=== PATIENT | male | born 1995 | race Caucasian/White ===

== ENCOUNTER → 2019-01-22 | Outpatient (CLI) | payer MEDICAID | LOC: M OUTALCOH 08:03 | PROVIDERS: ATTEND Psychiatry & Neurology Psychiatry | DX: Z03.89 Encounter for observation for other suspected diseases and conditions ruled out (principal) ==

== ENCOUNTER 2019-01-28 10:54 | Outpatient (RCR) | payer MEDICAID | END 2019-02-07 | LOC: M OUTALCOH 10:54 | PROVIDERS: ATTEND Psychiatry & Neurology Psychiatry | DX: Z03.89 Encounter for observation for other suspected diseases and conditions ruled out (principal) ==

== ENCOUNTER 2019-08-24 13:29 | Emergency (ER) | payer MEDICAID ==
[~2019-08-24] VITALS: Ht 188 cm; Wt 105.8 kg
[2019-08-24 14:18] VITALS: BP 138/74
--- NOTE | 2019-08-26 11:05 | REP ---
SHOULDER: REASON: Pain after lifting injury. PRIORS: None. Preliminary report given by Dr. Pinzon at the time the examination was performed. FINDINGS: Three views of the shoulder were performed. The acromioclavicular and glenohumeral relationships are within normal limits. There is no acute fracture or destructive osseous lesion. Electronically Signed by Gonzalez Sanchez DO 08/26/2019 11:54 A
== END 2019-08-24 14:20 | disposition home or self-care (01) ==
LOC: M ED 13:29
DX: M25.511 Pain in right shoulder (principal)

== ENCOUNTER 2020-05-28 15:09 | Emergency (ER) | payer OTHER ==
[~2020-05-28] VITALS: Ht 188 cm; Wt 111.4 kg
[2020-05-28 15:10] VITALS: BP 160/95
--- OUTSIDE RECORDS SUMMARY | 2020-05-28 15:20 | CCD | Continuity of Care Document ---
Author Author Ayden ABEBE PA Organization Unknown Address [address] [place] [id number] Phone [phone] Care Team Providers Care Western Philosophy Professor Name Role Phone aMrie Medina DO AUTM Problems Description No Information Available Social History Type Date Description Comments Sex Unknown Tobacco Use Start: Unknown End: Unknown Patient is a former smoker Smoking Status Reviewed: 10/21/19 Patient is a former smoker Allergies, Adverse Reactions, Alerts Description No Known Drug Allergies Medications Active Medications SIG Qnty Indications Ordering Provide r Date Meloxicam 15mg Tablets 1 by mouth every day with food or milk 30tabs M47.817 Rudi Field MD History Medications No Active Medications Unknown - 02/24/2020 Immunizations Description No Information Available Vital Signs Date Vital Result Comment 02/24/2020 5:32pm Body Temperature 97.4 F 12/09/2019 3:26pm Height 74 inches 6'2" Weight 229.00 lb BMI (Body Mass Index) 29.4 kg/m2 Results Description No Information Available Procedures Date Code Description Status 02/07/2020 Inject/Drain Joint/Bursa Major C ompleted 12/09/2019 99943 X-Ray Spine Lumbosacral Complete Inc Bending Views Min Of 6 Completed 10/21/2019 86164 X-Ray Shoulder Complete Complete d 10/21/201914627 Inject/Drain Joint/Bursa Interme diate Completed Medical Devices Description No Information Available Encounters Type Date Location Provider Dx Diagnosis Office Visit 02/24/2020 5:00p [place] MANOJ Benitez M47.817 Spondyls w/o myelopathy or radiculopathy, lumbosacr region M51.37 Other intervertebral disc de generation, lumbosacral region M51.27 Other intervertebral disc di splacement, lumbosacral region M48.07 Spinal stenosis, lumbosacral region M75.41 Impingement syndrome of righ t shoulder Office Visit 02/07/2020 12:[place]p [place] [facility] M51.36 Other intervertebral disc degeneration, lumbar region M75.41 Impingement syndrome of righ t shoulder M19.011 Primary osteoarthritis, righ t shoulder Office Visit 12/09/2019 2:30p [place] [facility] M51.36 Other intervertebral disc degeneration, lumbar region Office Visit 10/21/2019 3:15p [place] Rudi Field MD M19. 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 02/07/2020 M75.41 Impingement syndrome of right sh [place]ul[place] Michele Del Cid, P.A. 02/07/2020 M19.011 Primary osteoarthritis, right sh oulder Michele Del Cid, P.A. 12/09/2019 M51.36 Other intervertebral disc degene ration, lumbar region Michele Del Cid, P.A. 10/21/2019 M19.011 Primary osteoarthritis, right sh [place] Rudi Field MD Plan of Treatment Future Appointment(s):* 04/06/2020 5:15 pm - MANOJ Benitez at [place] 02/24/2020 - MANOJ Benitez* M47.817 Spondylosis without myelopathy or radiculopathy, lumbosacral region* New Medication:* Meloxicam 15 mg - 1 by mouth every day with food or milk * Follow up:* 6 weeks lumbar boris with [facility] * M51.37 Other intervertebral disc degeneration, lumbosacral region * M51.27 Other intervertebral disc displacement, lumbosacral region * M48.07 Spinal stenosis, lumbosacral region * M75.41 Impingement syndrome of right shoulder Functional Status Description No Information Available Mental Status Description No Information Available Referrals Description No Information Available
--- OUTSIDE RECORDS SUMMARY | 2020-05-28 15:20 | CCD ---
Continuity of Care Document (CCD) Created on: 04/15/2020 Ayden Pulido External Reference #: [id number] : [id number] Sex: Male Author Author Ayden ABEBE PA Organization Unknown Address [address] [place] [id number] Phone [phone] Care Team Providers Care Salesperson [employer] Name Role Phone Marie Medina DO AUTM [phone] Problems Description No Information Available Social History [...] Available Vital Signs Date Vital Result Comment 04/15/2020 3:42pm Body Temperature 97.3 F 02/24/2020 5:32pm Body Temperature 97.4 F Results Description No Information Available Procedures Date Code Description Status 02/07/2020 Inject/Drain Joint/Bursa Major C ompleted 12/09/2019 67580 X-Ray Spine Lumbosacral Complete Inc Bending Views Min Of 6 Completed 10/21/2019 55826 X-Ray Shoulder Complete Complete d 10/21/201935788 Inject/Drain Joint/Bursa Interme diate Completed Medical Devices Description No Information Available Encounters Type Date Location Provider Dx Diagnosis Office Visit 04/15/2020 3:30p [place] MANOJ Benitez M47.817 Spondyls w/o myelopathy or radiculopathy, lumbosacr region M51.37 Other intervertebral disc de generation, lumbosacral region M51.27 Other intervertebral disc di splacement, lumbosacral region M48.07 Spinal stenosis, lumbosacral region M75.41 Impingement syndrome of rig t shoulder Office Visit 02/24/2020 5:00p [place] MANOJ Benitez M47.817 Spondyls w/o myelopathy or radiculopathy, lumbosacr region M51.37 Other intervertebral disc de generation, lumbosacral region M51.27 Other intervertebral disc di splacement, lumbosacral region M48.07 Spinal stenosis, lumbosacral region M75.41 Impingement syndrome of rig t shoulder Office Visit 02/07/2020 12:45p [place] Michele Del Cid, P.A. M51.36 Other intervertebral disc degeneration, lumbar region M75.41 Impingement syndrome of rig t shoulder M19.011 Primary osteoarthritis, rig t shoulder Office Visit 12/09/2019 2:30p [place] Michele Del Cid, P.A. M51.36 Other intervertebral disc degeneration, lumbar region Office Visit 10/21/2019 3:15p [place] Rudi Field MD M19. 011 Primary osteoarthritis, right shoulder Assessments Date Code Description Provider 04/15/2020 M47.817 Spondylosis without myelopathy or radiculopathy, lumbosacral region MANOJ Benitez 04/15/2020 M51.37 Other intervertebral disc degene ration, lumbosacral region MANOJ Benitez 04/15/2020 M51.27 Other intervertebral disc displa cement, lumbosacral region MANOJ Benitez 04/15/2020 M48.07 Spinal stenosis, lumbosacral reg ion MANOJ Benitez 04/15/2020 M75.41 Impingement syndrome of right sh [place]ulder MANOJ Benitez 02/24/2020 M47.817 Spondylosis without myelopathy or radiculopathy, lumbosacral region MANOJ Benitez 02/24/2020 M51.37 Other intervertebral disc degene ration, lumbosacral region MANOJ Benitez 02/24/2020 M51.27 Other intervertebral disc displa cement, lumbosacral region MANOJ Benitez 02/24/2020 M48.07 Spinal stenosis, lumbosacral reg ion MANOJ Benitez 02/24/2020 M75.41 Impingement syndrome of right sh oulder MANOJ Benitez 02/07/2020 M51.36 Other intervertebral disc degene ration, lumbar region Michele Del Cid, P.A. 02/07/2020 M75.41 Impingement syndrome of right sh [place] Michele Del Cid, P.A. 02/07/2020 M19.011 Primary osteoarthritis, right sh [place] Michele Del Cid, P.A. 12/09/2019 M51.36 Other intervertebral disc degene ration, lumbar region Michele Del Cid, P.A. 10/21/2019 M19.011 Primary osteoarthritis, right sh krish Rudi Field MD Plan of Treatment 04/15/2020 - MANOJ Benitez* M47.817 Spondylosis without myelopathy or radiculopathy, lumbosacral region* Follow up:* in 6 weeks with [facility] * M51.37 Other intervertebral disc degeneration, lumbosacral region * M51.27 Other intervertebral disc displacement, lumbosacral region * M48.07 Spinal stenosis, lumbosacral region * M75.41 Impingement syndrome of right shoulder Functional Status Description No Information Available Mental Status Description No Information Available Referrals Refer to Dr Reason for Referral Status Appt Date Rudi Field MD AUTHORIZATION FOR EVAL [id number] ,[id number]. PATIENT GOING TO [facility]. PASSED TO CHART.HW Created [facility] [address] [place] [id number] [phone]
--- OUTSIDE RECORDS SUMMARY | 2020-05-28 15:21 | CCD ---
Author Author [facility] Organization [facility] Address Unknown Phone Unavailable Care Team Providers Care Wood Fence Erector Name Role Phone MCELHERAN, MICHELE PA Unavailable Unavailable MCELHERAN, MICHELE PA Unavailable Unavailable MCELHERAN, MICHELE PA Unavailable Unavailable MCELHERAN, MICHELE PA Unavailable Unavailable MCELHERAN, MICHELE PA Unavailable Unavailable MCELHERAN, MICHELE PA Unavailable Unavailable MCELHERAN, MICHELE PA Unavailable Unavailable MCELHERAN, MICHELE PA Unavailable Unavailable MCELHERAN, MICHELE PA Unavailable Unavailable MCELHERAN, MICHELE PA Unavailable Unavailable MCELHERAN, MICHELE PA Unavailable Unavailable MCELHERAN, MICHELE PA Unavailable Unavailable MCELHERAN, MICHELE PA Unavailable Unavailable MCELHERAN, MICHELE PA Unavailable Unavailable MCELHERAN, MICHELE PA Unavailable Unavailable MCELHERAN, MICHELE PA Unavailable Unavailable MCELHERAN, MICHELE PA Unavailable Unavailable MCELHERAN, MICHELE PA Unavailable Unavailable MCELHERAN, MICHELE PA Unavailable Unavailable MCELHERAN, MICHELE PA Unavailable Unavailable MCELHERAN, MICHELE PA Unavailable Unavailable MCELHERAN, MICHELE PA Unavailable Unavailable MCELHERAN, MICHELE PA Unavailable Unavailable MCELHERAN, MICHELE PA Unavailable Unavailable MCELHERAN, MICHELE PA Unavailable Unavailable MCELHERAN, MICHELE PA Unavailable Unavailable MCELHERAN, MICHELE PA Unavailable Unavailable MCELHERAN, MICHELE PA Unavailable Unavailable STEVE SAMUEL MD Unavailable Unavailable STEVE SAMULE MD Unavailable Unavailable STEVE SAMUEL MD Unavailable Unavailable STEVE SAMUEL MD Unavailable Unavailable STEVE SAMUEL MD Unavailable Unavailable STEVE SAMUEL MD Unavailable Unavailable STEVE SAMUEL MD Unavailable Unavailable STEVE SAMUEL MD Unavailable Unavailable STEVE SAMUEL MD Unavailable Unavailable STEVE SAMUEL MD Unavailable Unavailable STEVE SAMUEL MD Unavailable Unavailable STEVE SAMUEL MD Unavailable Unavailable STEVE SAMUEL MD Unavailable Unavailable STEVE SAMUEL MD Unavailable Unavailable STEVE SAMUEL MD Unavailable Unavailable STEVE SAMUEL MD Unavailable Unavailable STEVE SAMUEL MD Unavailable Unavailable STEVE SAMUEL MD Unavailable Unavailable STEVE SAMUEL MD Unavailable Unavailable LIZZIE, STEVE MICHELLE Unavailable Unavailable STEVE SAMUEL MD Unavailable Unavailable STEVE SAMUEL MD Unavailable Unavailable STEVE SAMUEL MD Unavailable Unavailable STEVE SAMUEL MD Unavailable Unavailable STEVE SAMUEL MD Unavailable Unavailable STEVE SAMUEL MD Unavailable Unavailable LIZZIE, STEVE MICHELLE Unavailable Unavailable STEVE SAMUEL MD Unavailable Unavailable STEVE SAMUEL MD Unavailable Unavailable LIZZIE, STEVE MICHELLE Unavailable Unavailable STEVE SAMUEL MD Unavailable Unavailable STEVE SAMUEL MD Unavailable Unavailable STEVE SAMUEL MD Unavailable Unavailable ANDRAE, M MUSTAPHA PA Unavailable Unavailable ANDRAE, M MUSTAPHA PA Unavailable Unavailable ANDRAE, M MUSTAPHA PA Unavailable Unavailable ANDRAE, M MUSTAPHA PA Unavailable Unavailable ANDRAE, M MUSTAPHA PA Unavailable Unavailable ANDRAE, M MUSTAPHA PA Unavailable Unavailable ANDRAE, M MUSTAPHA PA Unavailable Unavailable ANDRAE, M MUSTAPHA PA Unavailable Unavailable ANDRAE, M MUSTAPHA PA Unavailable Unavailable ANDRAE, M MUSTAPHA PA Unavailable Unavailable ANDRAE, M MUSTAPHA PA Unavailable Unavailable ANDRAE, M MUSTAPHA PA Unavailable Unavailable ANDRAE, M MUSTAPHA PA Unavailable Unavailable ANDRAE, M MUSTAPHA PA Unavailable Unavailable ANDRAE, M MUSTAPHA PA Unavailable Unavailable ANDRAE, M MUSTAPHA PA Unavailable Unavailable ANDRAE, M MUSTAPHA PA Unavailable Unavailable ANDRAE, M MUSTAPHA PA Unavailable Unavailable ANDRAE, M MUSTAPHA PA Unavailable Unavailable ANDRAE, M MUSTAPHA PA Unavailable Unavailable ANDRAE, M MUSTAPHA PA Unavailable Unavailable ANDRAE, M MUSTAPHA PA Unavailable Unavailable ANDRAE, M MUSTAPHA PA Unavailable Unavailable ANDRAE, M MUSTAPHA PA Unavailable Unavailable Re-disclosure Warning The records that you are about to access may contain information from federally-assisted alcohol or drug abuse programs. If such information is present, then the following federally mandated warning applies: This information has been disclosed to you from records protected by federal confidentiality rules (42 CFR part 2). The federal rules prohibit you from making any further disclosure of this information unless further disclosure is expressly permitted by the written consent of the person to whom it pertains or as otherwise permitted by 42 CFR part 2. A general authorization for the release of medical or other information is NOT sufficient for this purpose. The Federal rules restrict any use of the information to criminally investigate or prosecute any alcohol or drug abuse patient.The records that you are about to access may contain highly sensitive health information, the redisclosure of which is protected by Article 27-F of the [facility] Public Health law. If you continue you may have access to information: Regarding HIV / AIDS; Provided by facilities licensed or operated by the [facility] Office of Mental Health; or Provided by the [facility] Office for People With Developmental Disabilities. If such information is present, then the following [facility] mandated warning applies: This information has been disclosed to you from confidential records which are protected by state law. State law prohibits you from making any further disclosure of this information without the specific written consent of the person to whom it pertains, or as otherwise permitted by law. Any unauthorized further disclosure in violation of state law may result in a fine or longterm sentence or both. A general authorization for the release of medical or other information is NOT sufficient authorization for further disc losure. Encounters Encounter Providers Location Date Indications Data Source(s ) Outpatient Attender: MUSTAPHA ARANDA Physical Therapy 09/2020 02:30:00 PM EST [facility] ([facility]) Outpatient Attender: MUSTAPHA ARANDA Physical Therapy 02/08 04:00:00 PM EST [facility] ([facility]) Outpatient Attender: MICHELE ARANDA Physical Therapy 02/07/2020 12:45:00 PM EDT [facility] ([facility]) Outpatient Attender: MICHELE ARANDA Physical Therapy 12/09/2019 02:30:00 PM EDT [facility] ([facility]) Office Visit Attender: STEVE SAMUEL MD Physical Therapy 03:15:00 PM EDT [facility] ([facility]) Medications Medication Brand Name Start Date Product Form Dose Route Admi nistrative Instructions Pharmacy Instructions Status Indications Reaction Description Data Source(s) meloxicam 15 MG Oral Tablet Meloxicam 02/24/2020 12:00:00 AM EST ORAL active [facility] ([facility]) No Active Medications 10/21/2019 12:00:00 AM EDT completed [facility] ([facility]) Insurance Providers Payer name Policy type / Coverage type Policy ID Covered libertarian ID Covered libertarian's relationship to lopez Policy Lopez Plan Information [facility] [id number] SP [id number] [facility] O [id number] S [id number] [id number] SP [id number] Surgeries/Procedures Procedure Description Date Indications Data Source(s) ARTHROCENTESIS ASPIR&/INJECTION MAJOR JT/BURSA 020 12:00:00 AM EDT [facility] ([facility]) X-Ray Spine Lumbosacral Complete Inc Bending Views Min Of 6 12/09/2019 12:00:00 AM EDT [facility] ([facility]) ARTHROCENTESIS ASPIR&/INJECTION INTERM JT/BURSA 2019 12:00:00 AM EDT [facility] ([facility]) RADEX SHOULDER COMPLETE MINIMUM 2 VIEWS 10/21/2019 12: 00:00 AM EDT [facility] ([facility]) Results ID Date Data Source [id number] 01/17/2020 12:00:00 AM EDT [facility] Michele ARANDA Patient Name: YESSY [address]ARC[address] [place] [address] Date of : 1995[facility] [address] Date of Exam: 01/17/2020GUS He [id number]#: Fax: [phone] EXAM: MRI LUMBAR SPINE WITHOUT CONTRASTPROCEDURE INFORMATION:Exam: MR Lumbar Spine Without Contrast.Exam date and time: 01/17/2020 4:41 PM Age: 24 years oldClinical indication: Low back painTECHNIQUE: Imaging protocol: Mul tiplanar magnetic resonance images of thelumbar spine without intravenous contrast.COMPARISON: No relevant prior studies available.FINDINGS:Vertebrae: There is normal alignment of the lumbar spine. Vertebral bodyheights are normal. The marrow signal is normal.Spinal cord: The conus medullaris terminates at the L1 level. The distalcord appears unremarkable.L1-L2: There is no disc bulge or herniation. The facet joints appearnormal. No central or foraminal narrowing.L2- L3: There is no disc bulge or herniation. Small Schmorl's nodes are seenin the endplates. The facet joints appear normal. No central or foraminalnarrowing.L3- L4: There is no disc bulge or herniation. Small Schmorl's nodes are seenin the endplates. The facet joints appear normal. No central or foraminalnarrowing.L4- L5: The disc is normal in height but is desiccated. There a broad-basedbulge of the disc and there is peripheral high signal centrally in the discconsistent with an annular tear, but it is not associated with a distinctprotrusion. The facet joints appear mildly hypertrophic. There is mildcentral canal stenosis and mild bilateral neural foraminal narrowing.L5-S1: The disc is desiccated and mildly narrowed. There is a diffuse bulgeof the disc and a superimposed small central disc protrusion. There isperipheral high signal in the disc as well, consistent with an annulartear. The facet joints appear normal. There is mild ce ntral canal stenosisbut no significant deformation of the thecal sac. There is minimalbilateral neural foraminal narrowing.Soft tissues: The paraspinous soft tissues appear unremarkable.IMPRESSION:1. Evidence of degenerative disc disease at L4-L5 with a broad-based discprotrusion and annular tear, resulting in mild central and bilateral neuralforaminal narrowing.2. Evidence of degenerative disc disease at L5-S1 with a central discprotrusion, superimposed on a broad-based disc bulge, but resulting inlittle central and bilateral neural foraminal narrowing.Thank you for allowing us to participate in the care of your patient.Dictated and Authenticated by: Maria Dolores Jimenez MD 01/19/2020 4:22 AM [place] [facility] [facility] [place])VradV/jmcThank you for referring YESSY GARCIA to our office. Electronically Signed - [facility] 01/20/20 9:05 Name Value Range Interpretation Code Description Data Camille rce(s) Supporting Document(s) Procedure Social History Code Duration Value Status Description Data Source(s ) Smoking 10/21/2019 12:00:00 AM EDT Patient is a former smoker completed Patient is a former smoker [facility] ([facility]) Vital Signs ID Date Data Source UNK Name Value Range Interpretation Code Description Data Source(s) Body temperature 97.3 [degF] 97.3 [degF] [facility] ([facility]) Body temperature 97.4 [degF] 97.4 [degF] [facility] ([facility]) Body mass index (BMI) [Ratio] 29.4 kg/m2 29.4 k g/m2 [facility] ([facility]) Body weight 229.00 [lb_av] 229.00 [lb_av] [facility] T ([facility]) Body height 74 [in_i] 74 [in_i] [facility] ([facility]) 6'2" Body mass index (BMI) [Ratio] 30.2 kg/m2 30.2 k g/m2 [facility] ([facility]) Body weight 235.00 [lb_av] 235.00 [lb_av] [facility] T ([facility]) Body height 74 [in_i] 74 [in_i] [facility] ([facility]) 6'2" Body temperature 97.8 [degF] 97.8 [degF] [facility] ([facility])
--- OUTSIDE RECORDS SUMMARY | 2020-05-28 16:17 | CCD ---
Author Author [facility] Organization [facility] Address Unknown Phone Unavailable Care Team Providers Care Sewer Connector Name Role Phone MCELHERAN, MICHELE PA Unavailable [...] Unavailable Unavailable STEVE SAMUEL MD Unavailable Unavailable TSEVE SAMUEL MD Unavailable Unavailable STEVE SAMUEL MD [...] is protected by Article 27-F of the [facility] Public Health law. If you continue you may have access to information: Regarding HIV / AIDS; Provided by facilities licensed or operated by the [facility] Office of Mental Health; or Provided by the [facility] Office for People With Developmental Disabilities. If such information is present, then the following [facility] mandated warning applies: This information has [...] law may result in a fine or nursing home sentence or both. A general authorization for the release of medical or other information is NOT sufficient authorization for further disc losure. Encounters Encounter Providers Location Date Indications Data Source(s ) Outpatient Attender: MUSTAPHA ARANDA Physical Therapy 09/2020 02:30:00 PM EST [facility] ([facility]) Outpatient Attender: MUSTAPHA ARANDA Physical Therapy 02/08 04:00:00 PM EST [facility] ([facility]) Outpatient Attender: MICHELE ARANDA Physical Therapy 02/07/2020 12:45:00 PM EDT [facility] ([facility]) Outpatient Attender: MICHELE ARANDA Physical Therapy 12/09/2019 02:30:00 PM EDT [facility] ([facility]) Office Visit Attender: STEVE SAMUEL MD Physical Therapy 03:15:00 PM EDT [facility] ([facility]) Medications Medication Brand Name Start Date Product Form Dose Route Admi nistrative Instructions Pharmacy Instructions Status Indications Reaction Description Data Source(s) meloxicam 15 MG Oral Tablet Meloxicam 02/24/2020 12:00:00 AM EST ORAL active [facility] ([facility]) No Active Medications 10/21/2019 12:00:00 AM EDT completed [facility] ([facility]) Insurance Providers Payer name Policy type / Coverage type Policy ID Covered democrat ID Covered democrat's relationship to lopez Policy Lopez Plan Information [facility] [id number] SP [id number] [facility] [id number] [facility] [id number] S [id number] MEDICAID [id number] SP [id number] Surgeries/Procedures Procedure Description Date Indications Data Source(s) ARTHROCENTESIS ASPIR&/INJECTION MAJOR JT/BURSA 020 12:00:00 AM EDT [facility] ([facility]) X-Ray Spine Lumbosacral Complete Inc Bending Views Min Of 6 12/09/2019 12:00:00 AM EDT [facility] ([facility]) ARTHROCENTESIS ASPIR&/INJECTION INTERM JT/BURSA 2019 12:00:00 AM EDT [facility] ([facility] RADEX SHOULDER COMPLETE MINIMUM 2 VIEWS 10/21/2019 12: 00:00 AM EDT [facility] ([facility] ) Results ID Date Data Source [id number] 01/17/2020 12:00:00 AM EDT [facility] Michele ARANDA Patient Name: YESSY [address] [place] [address] Date of : 1995[address] Date of Exam: 01/17/2020GUS He [id number]#: Fax: [phone] EXAM: MRI LUMBAR SPINE WITHOUT [...] Maria Dolores Jimenez MD 01/19/2020 4:22 AM [facility] ([facility] Mar[facility])DavidadV/jmcThank you for referring YESSY GARCIA to our office. Electronically Signed - [facility] 01/20/20 9:05 Name Value Range Interpretation Code Description Data Camille rce(s) Supporting Document(s) Procedure Social History Code Duration Value Status Description Data Source(s ) Smoking 10/21/2019 12:00:00 AM EDT Patient is a former smoker completed Patient is a former smoker [facility] ([facility]) Vital Signs ID Date Data Source UNK Name Value Range Interpretation Code Description Data Source(s) Body temperature 97.3 [degF] 97.3 [degF] [facility] ([facility]) Body temperature 97.4 [degF] 97.4 [degF] [facility] ([facility]) Body mass index (BMI) [Ratio] 29.4 kg/m2 29.4 k g/m2 [facility] ([facility]) Body weight 229.00 [lb_av] 229.00 [lb_av] [facility] T ([facility]) Body height 74 [in_i] 74 [in_i] [facility] ([facility]) 6'2" Body mass index (BMI) [Ratio] 30.2 kg/m2 30.2 k g/m2 [facility] ([facility]) Body weight 235.00 [lb_av] 235.00 [lb_av] [facility] T ([facility]) Body height 74 [in_i] 74 [in_i] [facility] ([facility]) 6'2" Body temperature 97.8 [degF] 97.8 [degF] [facility] ([facility])
[2020-05-28] MEDS ORDERED: FLUORESCEIN OPHTH 1 MG STRIP OD ONE (16:45)
[2020-05-28] MEDS ORDERED: TETRACAINE 0.5% OPHTH SOLN 4ML OD ONE (16:45)
[2020-05-28] MEDS ORDERED: POLYSOL OD (17:40)
== END 2020-05-28 17:45 | disposition home or self-care (01) ==
LOC: M ED 15:09
DX: H00.011 Hordeolum externum right upper eyelid (principal)